=== PATIENT | male | born 1965 ===

== ENCOUNTER 2019-10-29 18:58 | Emergency (ER) | payer BC ==
[2019-10-29] MEDS ORDERED: Cyclobenzaprine 10 MG TAB ONE (19:56)
[2019-10-29] MEDS ORDERED: Ketorolac Tromethamine 30 MG/ML VIAL ONE (19:56)
[2019-10-29] MEDS ORDERED: Adacel (T-DAP) 0.5 ML SYRINGE ONE (20:19)
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
== END 2019-10-29 20:57 | disposition home or self-care (01) ==
LOC: ERS 18:58
DX: S93.402A Sprain of unspecified ligament of left ankle, initial encounter (principal); S73.102A Unspecified sprain of left hip, initial encounter; S00.81XA Abrasion of other part of head, initial encounter; E11.9 Type 2 diabetes mellitus without complications; E78.5 Hyperlipidemia, unspecified; V86.56XA Driver of dirt bike or motor/cross bike injured in nontraffic accident, initial encounter
CPT/HCPCS: 72170; 90471; 90715; 96372; J1885